=== PATIENT | male | born 1980 | race Caucasian/White ===

== ENCOUNTER 2022-08-11 15:20 | Emergency (ER) | payer MEDICAID, SELFPAY ==
[2022-08-11 15:51] VITALS: BP 130/85; PULSE 77; RESP 16; TEMP 36.9; O2SAT 98
[2022-08-11 16:45] VITALS: BP 114/68; PULSE 84; RESP 17; O2SAT 99
--- NOTE | 2022-08-11 17:30 | XRR_ITS ---
PROCEDURE INFORMATION: Exam: XR Left Hip Exam date and time: 08/12/2022 6:07 AM Age: 42 years old Clinical indication: Injury or trauma; Other: Crush injury by log; Blunt trauma (contusions or hematomas); Left; Hip; Additional info: Hip and thigh pain- crush injury by log TECHNIQUE: Imaging protocol: Radiologic exam of the left hip. Views: 2 or 3 views hip with pelvis when performed. COMPARISON: CR XR femur LT min 2V* [id number] 08/11/2022 5:36 PM FINDINGS: Bones/joints: Fracture through the left femoral neck. Soft tissues: Unremarkable. XR/XR hip LT 2-3V wo/w pel* [id number] IMPRESSION: Left hip fracture.
--- NOTE | 2022-08-11 17:30 | XRR_ITS ---
PROCEDURE INFORMATION: Exam: XR Left Femur Exam date and time: 08/11/2022 5:36 PM Age: 42 years old Clinical indication: Injury or trauma; Blunt trauma and other: Crush injury by log; Hip; Left; Additional info: Hip and thigh pain- crush injury by log TECHNIQUE: Imaging protocol: Radiologic exam of the left femur. Views: 2 views. COMPARISON: No relevant prior studies available. FINDINGS: Bones/joints: Fracture through the left femoral neck. Soft tissues: Unremarkable. XR/XR femur LT min 2V* [id number] IMPRESSION: Left hip fracture.
--- NOTE | 2022-08-11 19:00 | ED_ITS ---
HPI - Trauma General: Chief Complaint: Trauma Stated Complaint: left leg and hip injury Time Seen by Provider: 08/11/22 18:50 Source: patient Mode of arrival: ambulatory Limitations: no limitations History of Present Illness: 42-year-old male states he is loading logs on a skid steer states 1 out of 4 can of rolled off hitting him right in his left hip. He states that has happened roughly 5 hours ago he states that he has pain in that left hip he has not been able to ambulate he denies any other injuries denies any abdominal pain denies any back pain. Associated symptoms: Denies abdominal pain, chest pain, chills, dental pain, fever(s), headache(s), nausea or vomiting Review of Systems Const: Denies: fever(s), chills, body aches or change in appetite Eyes: Denies: blurry vision or eye discomfort ENMT: Denies: throat pain or dental pain Card: Denies: chest pain Resp: Denies: dyspnea GI: Denies: abdominal pain, nausea, vomiting or diarrhea : Denies: dysuria Musc: Reports: extremity pain Skin/Breast: Denies: rash Neuro: Denies: headache(s) Psych: Denies: depression Jesus/Lymph: Denies: easy bruising All/Imm: Denies: urticaria PFSH ED PFSH: Medical History No pertinent past medical history Social History (Updated 08/11/22 @ 19:01 by Dora Almendarez MD) Substance/Drug Use: unknown Physical Exam Const: COMMON NORMALS: no acute distress, patient oriented x3 and healthy appearing HENMT: COMMON NORMALS: normocephalic and atraumatic HEAD & SCALP: normocephalic and atraumatic Eye: COMMON NORMALS: Equal, round and reactive pupils present and EOMs intact bilaterally PUPIL: Yes Equal, round and reactive pupils present Neck/C-Spine: COMMON NORMALS: full ROM and supple Chest: COMMONS NORMALS: normal inspection of the chest and normal palpation of entire chest wall Resp: COMMON NORMALS: normal respiratory effort, No retractions, No use of accessory muscles and clear to auscultation bilaterally AUSCULTATION: clear to auscultation bilaterally Cardio: COMMON NORMALS: regular rate, regular rhythm and No murmurs present (Cardio) RATE: regular rate RHYTHM: regular rhythm GI: COMMON NORMALS: Normal to inspection, nondistended, normoactive bowel sounds present, Soft to palpation, non-tender and no masses PALPATION: Yes Soft to palpation Extremity: NARRATIVE EXTREMITY EXAM: tenderness over left hip slight shorteneing and rotation Neuro: COMMON NORMALS: patient oriented x3, moves all extremities and no focal motor deficits Psych: COMMON NORMALS: mental status grossly normal, Normal thought process present and cooperative THOUGHT PROCESS: Normal thought process present Skin: COMMON NORMALS: no rashes or lesions noted and no wounds GENERAL SKIN EXAM: no rashes or lesions noted Course Vital Signs: Vital signs: Vital Signs Temperature 98.5 F 08/11/22 15:51 Pulse Rate 82 08/11/22 20:57 Respiratory Rate 16 08/11/22 20:57 Blood Pressure 121/72 08/11/22 20:57 Pulse Oximetry 96 08/11/22 20:57 Oxygen Delivery Me thod 08/11/22 20:57 MDM - Trauma Medical Decision Making Patient presents here with hip fracture along with transverse process fracture I did speak to Dr. Beck orthopedist we actually do not have any pins or any equipment he has tried to speak to all of his representatives and they are unable to get any here for 2 days I did speak to [facility] and will transfer there as he needs surgery sooner than that. Lab Data 08/11/22 19:17 08/11/22 19:17 Radiology Impressions Femur X-Ray 08/11/22 17:30 IMPRESSION: Left hip fracture. Hip/Pelvis X-Ray 08/11/22 17:30 IMPRESSION: Left hip fracture. Chest X-Ray 08/11/22 19:03 IMPRESSION: No acute findings. Abdomen/Pelvis CT 08/11/22 19:08 IMPRESSION: 1. Left hip acute surgical fracture. 2. A couple left lumbar transverse process fractures with soft tissue injuries. 3. No acute abdominal or pelvic traumatic visceral injury visualized. 4. A few chronic findings. Hip CT 08/11/22 19:23 IMPRESSION: Left hip acute surgical fracture as described. Laboratory Results WBC 13.6 10^3/uL (4.0-10.0) H 08/11/22 19:17 RBC 4.84 10^6/uL (4.1-5.3) 08/11/22 19:17 Hgb 14.4 g/dL (11.7-16.6) 08/11/22 19:17 Hct 43.8 % (42.0-52.0) 08/11/22 19:17 MCV 90.5 fl (80-94) 08/11/22 19:17 MCH 29.8 pg (28.0-34.0) 08/11/22 19:17 MCHC 32.9 g/dL (30.0-36.0) 08/11/22 19:17 RDW 12.7 % (12.1-15.1) 08/11/22 19:17 Plt Count 209 10^3/cmm (130-400) 08/11/22 19:17 MPV 10.3 fL (7.4-10.4) 08/11/22 19:17 Neut % (Auto) 90.9 % 08/11/22 19:17 Lymph % (Auto) 4.8 % 08/11/22 19:17 Ashley % (Auto) 3.7 % 08/11/22 19:17 Eos % (Auto) 0.0 % 08/11/22 19:17 Baso % (Auto) 0.1 % 08/11/22 19:17 Neut # (Auto) 12.38 10^3/uL (1.8-7.7) H 08/11/22 19:17 Lymph # (Auto) 0.7 10^3/uL (0.8-4.8) L 08/11/22 19:17 Ashley # (Auto) 0.5 10^3/uL (0.2-0.9) 08/11/22 19:17 Eos # (Auto) 0.0 10^3/uL (0.0-0.8) 08/11/22 19:17 Baso # (Auto) 0.0 10^3/uL (0.0-0.1) 08/11/22 19:17 Nucleated RBC % (auto) 0 % 08/11/22 19:17 Nucleated RBCs # 0.0 /100WBC 08/11/22 19:17 PT 13.70 SECONDS (12.1-14.9) 08/11/22 19:17 INR 1.02 (0.8-1.2) 08/11/22 19:17 Sodium 138 mmol/L (136-145) 08/11/22 19:17 Potassium 3.7 mmol/L (3.5-5.1) 08/11/22 19:17 Chloride 100 mmol/L (98-107) 08/11/22 19:17 Carbon Dioxide 22 mmol/L (22-29) 08/11/22 19:17 Anion Gap 19.7 (5-19) H 08/11/22 19:17 BUN 11 mg/dL (6-20) 08/11/22 19:17 Creatinine 1.0 mg/dL (0.7-1.2) 08/11/22 19:17 GFR Calculation 82.3 mL/min (90-130) L 08/11/22 19:17 Glucose 114 mg/dL (65-115) 08/11/22 19:17 Calculated Osmolality 286 mOsm/kg (285-295) 08/11/22 19:17 Calcium 9.1 mg/dL (8.5-10.5) 08/11/22 19:17 Total Bilirubin 0.7 mg/dL (0.15-1.2) 08/11/22 19:17 AST 24 U/L (0-40) 08/11/22 19:17 ALT 15 U/L (0-41) 08/11/22 19:17 Alkaline Phosphatase 103 U/L (40-130) 08/11/22 19:17 Total Protein 6.9 g/dL (6.6-8.7) 08/11/22 19:17 Albumin 4.6 g/dL (3.5-5.2) 08/11/22 19:17 Globulin 2.3 g/dL (1.3-4.6) 08/11/22 19:17 Discharge Plan Discharge Patient Disposition: Xfer Short-Term Hosp Clinical Impression: Closed fracture of left hip Coding Level of Care Code ED Group Home Paraprofessional for Jesu Michaud
--- NOTE | 2022-08-11 19:03 | XRR_ITS ---
PROCEDURE INFORMATION: Exam: XR Chest Exam date and time: 08/11/2022 8:08 PM Age: 42 years old Clinical indication: Other: HTN TECHNIQUE: Imaging protocol: Radiologic exam of the chest. Views: 1 view. COMPARISON: CT abdomen pelvis w con* [id number] 08/11/2022 7:48 PM FINDINGS: Lungs: Unremarkable. No consolidation. Pleural spaces: Unremarkable. No pleural effusion. No pneumothorax. Heart/Mediastinum: Unremarkable. No cardiomegaly. Bones/joints: Unremarkable. XR/XR chest 1V portable [id number] IMPRESSION: No acute findings.
--- NOTE | 2022-08-11 19:03 | ECG_ITS ---
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 Measurements Intervals [place] Rate: 71 P: 59 KS: 171 QRS: 26 QRSD: 95 T: 46 QT: 382 QTc: 416 Interpretive Statements SINUS RHYTHM WITH SINUS ARRHYTHMIA No previous ECG available for comparison Electronically Signed On 08-12-2022 21:39:33 SITE SPECIALIST by Gabriel Nelson M.D. [email or web address]
--- NOTE | 2022-08-11 19:08 | CTR_ITS ---
PROCEDURE INFORMATION: Exam: CT Abdomen And Pelvis With Contrast Exam date and time: 08/11/2022 7:48 PM Age: 42 years old Clinical indication: Injury or trauma; Other: Logging accident; Work related; Blunt; Generalized TECHNIQUE: Imaging protocol: Computed tomography of the abdomen and pelvis with contrast. Radiation optimization: All CT scans at this facility use at least one of these dose optimization techniques: automated exposure control; mA and/or kV adjustment per patient size (includes targeted exams where dose is matched to clinical indication); or iterative reconstruction. Contrast material: OMNI 350; Contrast volume: 100 ml; Contrast route: INTRAVENOUS (IV); REPORTING DATA: Count of CT and Cardiac NM exams in prior 12 months: This patient has received [address] and 0 known cardiac nuclear medicine studies in the 12 months prior to the current study. COMPARISON: CT hip LT wo con* [id number] 08/11/2022 7:42 PM RADIATION DOSE METRICS: Total DLP (mGy-cm): 969.23 FINDINGS: Lungs: The visualized lung bases are clear. Diaphragm: Small hiatal hernia. Liver: Unremarkable. No enhancing mass. Gallbladder and bile ducts: No calcified gallstones or biliary dilation identified. Pancreas: Unremarkable with no suspicious mass. No ductal dilation. Spleen: The spleen is not enlarged. No suspicious enhancing mass is noted. Adrenal glands: Normal. No mass. Kidneys and ureters: No solid renal mass or hydronephrosis. Stomach and bowel: No small bowel obstruction or free air. No overt mucosal thickening. Appendix: No evidence of appendicitis. Intraperitoneal space: Unremarkable. No free air. No suspicious fluid collection. Vasculature: No AAA or acute vascular lesion identified. Lymph nodes: No enlarged lymph nodes. Urinary bladder: Unremarkable as visualized. Reproductive: Unremarkable as visualized. Bones/joints: The left femoral neck shows a moderately displaced and mildly angulated acute fracture with comminution. Involves the junction of the neck and the greater trochanter. Mildly displaced transverse process fractures at left L3 and L4. Soft tissues: Mild left buttock subcutaneous edema/abrasions. CT/CT abdomen pelvis w con* [id number] IMPRESSION: 1. Left hip acute surgical fracture. 2. A couple left lumbar transverse process fractures with soft tissue injuries. 3. No acute abdominal or pelvic traumatic visceral injury visualized. 4. A few chronic findings.
--- NOTE | 2022-08-11 19:23 | CTR_ITS ---
PROCEDURE INFORMATION: Exam: CT Left Lower Extremity Without Contrast, Hip Exam date and time: 08/11/2022 7:42 PM Age: 42 years old Clinical indication: Injury or trauma; Other: Hit with log; Work related; Blunt trauma; Hip; Left TECHNIQUE: Imaging protocol: CT of the left lower extremity without contrast was performed. Exam focused on the hip. Radiation optimization: All CT scans at this facility use at least one of these dose optimization techniques: automated exposure control; mA and/or kV adjustment per patient size (includes targeted exams where dose is matched to clinical indication); or iterative reconstruction. REPORTING DATA: Count of CT and Cardiac NM exams in prior 12 months: This patient has received [address] and 0 known cardiac nuclear medicine studies in the 12 months prior to the current study. COMPARISON: CR XR femur LT min 2V* [id number] 08/11/2022 5:36 PM RADIATION DOSE METRICS: Total DLP (mGy-cm): 503.7 FINDINGS: Bones/joints: The left femoral neck shows a moderately displaced and mildly angulated acute fracture with comminution. Involves the junction of the neck and the greater trochanter. No dislocation. Soft tissues: Mild left hip and thigh soft tissue swelling. CT/CT hip LT wo con* [id number] IMPRESSION: Left hip acute surgical fracture as described.
[2022-08-11 19:30] LABS: Basophils % 0.1 %; Hematocrit 43.8 % (42.0-52.0); Hemoglobin 14.4 g/dL (11.7-16.6); Lymphocytes # 0.7 10^3/uL (0.8-4.8); Lymphocytes % 4.8 %; Mean Corpuscular HGB Conc 32.9 g/dL (30.0-36.0); Mean Corpuscular Hemoglobin 29.8 pg (28.0-34.0); Mean Corpuscular Volume 90.5 fl (80-94); Mean Platelet Volume 10.3 fL (7.4-10.4); Monocytes # 0.5 10^3/uL (0.2-0.9); Monocytes % 3.7 %; Neutrophils # 12.38 10^3/uL (1.8-7.7); Neutrophils % 90.9 %; Nucleated Red Blood Cells % 0 %; Platelet Count 209 10^3/cmm (130-400); Red Blood Count 4.84 10^6/uL (4.1-5.3); Red Cell Distribution Width 12.7 % (12.1-15.1); White Blood Count 13.6 10^3/uL (4.0-10.0)
[2022-08-11] MEDS: ondansetron 2 mg/ML SDV 2 mL 4 MG IVP ×2 (19:32→22:01)
[2022-08-11] MEDS: morphine 4 mg/mL SDV 1 mL IVP ×2 (19:32→22:01)
[2022-08-11 19:40] LABS: INR 1.02 (0.8-1.2)
[2022-08-11 19:47] LABS: Alanine Aminotransferase 15 U/L (0-41); Albumin Level 4.6 g/dL (3.5-5.2); Alkaline Phosphatase 103 U/L (40-130); Anion Gap 19.7 (5-19); Aspartate Amino Transferase 24 U/L (0-40); Blood Urea Nitrogen 11 mg/dL (6-20); Calcium 9.1 mg/dL (8.5-10.5); Carbon Dioxide 22 mmol/L (22-29); Chloride 100 mmol/L (98-107); Globulin 2.3 g/dL (1.3-4.6); Glomerular Filtration Rate 82.3 mL/min (90-130); Glucose 114 mg/dL (65-115); Osmolality Calculated 286 mOsm/kg (285-295); Potassium 3.7 mmol/L (3.5-5.1); Sodium 138 mmol/L (136-145); Total Bilirubin 0.7 mg/dL (0.15-1.2); Total Protein 6.9 g/dL (6.6-8.7)
[2022-08-11] MEDS: iohexol 350 mg/mL 500 mL Btl (per mL) IV (20:07)
--- NOTE | 2022-08-11 20:55 | PC.NURSE ---
PATIENT CHOPRA CATHETER PLACED WITH JEREMIE BERNAL. PATIENT SKIN ASSESSMENT DONE UPON PLACEMENT. PATIENT HAS HEMATOMA AND SWELLING TO LEFT KNEE AND SKIN ABRASION TO RIGHT [place]. PATIENT TOLERATED PROCEDURE WELL. PATIENT GIVEN BLANKET AND MADE COMFORTABLE IN BED.
[2022-08-11 20:57] VITALS: BP 121/72; PULSE 82; RESP 16; O2SAT 96
--- NOTE | 2022-08-11 21:07 | PC.NURSE ---
report called abram Mccloud RN
[2022-08-11 22:01] VITALS: RESP 16
[2022-08-11 22:15] VITALS: BP 127/68; PULSE 82; RESP 16; O2SAT 99
--- NOTE | 2022-08-22 15:14 | DCPLANNER ---
08.20.23 - patient was called due to no primary care physician - patient declines at this time.
== END 2022-08-11 22:17 | disposition short-term general hospital (02) ==
PROVIDERS: Emergency Provider Emergency Medicine
DX: S72.092A Other fracture of head and neck of left femur, initial encounter for closed fracture (principal); S32.038A Other fracture of third lumbar vertebra, initial encounter for closed fracture; S32.048A Other fracture of fourth lumbar vertebra, initial encounter for closed fracture; W20.8XXA Other cause of strike by thrown, projected or falling object, initial encounter; Y99.0 Civilian activity done for income or pay
CPT/HCPCS: 36415; 51702; 71045; 73502; 73552; 73700; 74177; 80053; 85025; 85610; 93005; 96374; 96375; 96376; 99285; J2270; J2405; Q9967